=== PATIENT | female | born 1950 | race Two or more races ===

== ENCOUNTER 2018-05-29 12:57 | Outpatient (CLI) | payer OTHER ==
[~2018-05-29 12:57] MED LIST: ATENOLOL100 MG; CLONAZEPAM0.5 MG PO; COZAAR100 MG
== END 2018-05-29 13:08 | disposition home or self-care (01) ==
LOC: MRI 12:57
DX: M12.9 Arthropathy, unspecified (principal); M19.90 Unspecified osteoarthritis, unspecified site
CPT/HCPCS: 73721

== ENCOUNTER 2020-11-19 14:38 | Outpatient (CLI) | payer OTHER | END 2020-11-19 14:41 | disposition home or self-care (01) | LOC: MAMO-SONO 14:38 | PROVIDERS: ATTEND Internal Medicine Cardiovascular Disease | DX: R92.0 Mammographic microcalcification found on diagnostic imaging of breast (principal); Z12.31 Encounter for screening mammogram for malignant neoplasm of breast; N64.89 Other specified disorders of breast ==

== ENCOUNTER 2020-11-19 15:02 | Outpatient (CLI) | payer OTHER | END 2020-11-19 15:03 | disposition home or self-care (01) | LOC: NUCLEAR 15:02 | PROVIDERS: ATTEND Internal Medicine Cardiovascular Disease | DX: M81.0 Age-related osteoporosis without current pathological fracture (principal); E55.9 Vitamin D deficiency, unspecified ==

== ENCOUNTER 2021-03-20 10:50 | Outpatient (CLI) | payer OTHER | END 2021-03-20 11:20 | disposition home or self-care (01) | LOC: PPH VACUNA 10:50 | PROVIDERS: ATTEND Emergency Medicine Pediatric Emergency Medicine | DX: Z23 Encounter for immunization (principal) ==

== ENCOUNTER 2022-05-13 12:17 | Outpatient (CLI) | payer OTHER | END 2022-05-13 12:23 | disposition home or self-care (01) | LOC: RAD 12:17 | PROVIDERS: ATTEND Ophthalmology | DX: H25.011 Cortical age-related cataract, right eye (principal); Z98.41 Cataract extraction status, right eye ==

== ENCOUNTER 2022-05-13 13:14 | Outpatient (CLI) | payer OTHER | END 2022-05-13 13:15 | disposition home or self-care (01) | LOC: EKG 13:14 | PROVIDERS: ATTEND Ophthalmology | DX: I10 Essential (primary) hypertension (principal); I11.9 Hypertensive heart disease without heart failure ==

== ENCOUNTER → 2022-09-01 | Outpatient (CLI) | payer OTHER | END | disposition home or self-care (01) | LOC: MAMO-SONO 10:22 | PROVIDERS: ATTEND Internal Medicine Cardiovascular Disease | DX: Z12.31 Encounter for screening mammogram for malignant neoplasm of breast (principal); N63.11 Unspecified lump in the right breast, upper outer quadrant; N60.12 Diffuse cystic mastopathy of left breast ==

== ENCOUNTER → 2023-01-14 | Day surgery (SDC) | payer OTHER ==
[2023-01-12 09:56] LABS: HEMATOCRIT 36.5 % (36.0-45.00); HEMOGLOBIN 12.5 g/dL (12.0-15.00); MEAN CELL VOLUME 84.9 fL (80.00-100.00); MEAN CORPUSCULAR HGB CONC 34.2 g/dl (32.0-36.0); PLATELET COUNT 215 K/uL (150-450); RED CELL DISTRIBUTION WIDTH 14.8 % (11.5-14.5)
[2023-01-12 10:41] LABS: INR 1.05
[2023-01-12 10:41] LABS: PH,URINE 5.5 (5.0-8.0); URINE APPEARANCE Clear; URINE BILIRRUBIN Negative (NEGATIVE); URINE BLOOD Negative; URINE COLOR Dark Yellow; URINE GLUCOSE Negative (NEGATIVE); URINE LEUKOCYTE Small; URINE NITRATE Negative; URINE PROTEIN Trace (NEGATIVE)
[2023-01-12 10:43] LABS: URINE EPITHELIAL CELLS 36.7 uL (0.0-38.8); URINE RBC 7.3 uL (0.0-20.8); URINE WBC 26.5 uL (0.0-23.2)
[2023-01-12 10:51] LABS: ALBUMIN 3.7 gm/dL (3.4-5.0); BILIRUBIN TOTAL 0.83 mg/dL (0.3-1.2); CALCIUM 8.8 mg/dL (8.5-10.1); CREATININE SERUM 0.54 mg/dL (0.55-1.02); GFR 111.29; GLOBULINA 3.1 G/DL (2.4-3.5); POTASSIUM 3.59 mEq/L (3.5-5.1); TOTAL PROTEIN 6.8 gm/dL (6.4-8.2)
[2023-01-12 10:54] LABS: PARTIAL THROMBOPLASTIN TIME 41.6 SECONDS (22.0-34.0)
[~2023-01-14] MED LIST changes: +COZAAR50 MG PO; +TOPROL XL200 MG PO; +ZOLOFT25 MG PO
== END | disposition home or self-care (01) ==
LOC: ADM 01-12 15:00 → CIR.AMB 06:00
PROVIDERS: ATTEND Surgery
DX: D05.12 Intraductal carcinoma in situ of left breast (principal); R59.0 Localized enlarged lymph nodes; Z88.2 Allergy status to sulfonamides; Z88.6 Allergy status to analgesic agent; Z88.0 Allergy status to penicillin

== ENCOUNTER 2024-01-02 12:22 | Outpatient (CLI) | payer OTHER | END 2024-01-02 12:26 | disposition home or self-care (01) | LOC: NUCLEAR 12:22 | PROVIDERS: ATTEND Internal Medicine Cardiovascular Disease | DX: M81.0 Age-related osteoporosis without current pathological fracture (principal) ==

== ENCOUNTER 2024-07-26 10:50 | Outpatient (CLI) | payer OTHER | END 2024-07-26 11:00 | disposition home or self-care (01) | LOC: MAMO-SONO 10:50 | PROVIDERS: ATTEND Surgery | DX: D05.12 Intraductal carcinoma in situ of left breast (principal); N60.11 Diffuse cystic mastopathy of right breast; N60.12 Diffuse cystic mastopathy of left breast ==

== ENCOUNTER 2024-12-06 08:22 | Outpatient (CLI) | payer OTHER | END 2024-12-06 08:27 | disposition home or self-care (01) | LOC: TOM 08:22 | PROVIDERS: ATTEND Internal Medicine Gastroenterology | DX: R10.9 Unspecified abdominal pain (principal); Z88.0 Allergy status to penicillin; Z88.2 Allergy status to sulfonamides; Z88.6 Allergy status to analgesic agent ==